=== PATIENT | male | born 1955 | race Caucasian/White ===

== ENCOUNTER 2018-02-04 09:15 | Day surgery (SDC) | payer BC ==
[2018-02-01 11:50] VITALS: BMI 32.2
[2018-02-04 11:10] VITALS: TEMP 98.5
[2018-02-04 11:51] VITALS: BP 128/85; PULSE 92
== END 2018-02-04 11:58 | disposition home or self-care (01) ==
LOC: JASU-ENDO 09:15
PROVIDERS: ATTEND Internal Medicine Gastroenterology
PROC: 0DJD8ZZ Inspection of Lower Intestinal Tract, Via Natural or Artificial Opening Endoscopic (ICD-10-PCS; principal; 2018-02-04 11:15)
DX: Z12.11 Encounter for screening for malignant neoplasm of colon (principal); K64.8 Other hemorrhoids
CPT/HCPCS: 82962